=== PATIENT | male | born 1990 | race Hispanic/Latino ===

== ENCOUNTER 2024-07-18 18:52 | Inpatient (IN) | payer SELFPAY ==
[~2024-07-18] VITALS: Ht 175.3 cm; Wt 84.8 kg
--- NOTE | 2024-07-18 18:59 | ERN ---
ED Note History of Present Illness Stated Complaint: ELEVATED BG Chief Complaint: Blood Sugar Problem Time Seen by MD: 18:59 Dictation: 34-year-old male who comes to the ED. Because he said he had elevated sugar. Some generalized weakness. No falls or traumas does report that he has has been getting over a mild cold here recently no abdominal pain no chest pain no shortness of breath anything of that nature no fevers no chills no dysuria hematuria discharge Allergies: Coded Allergies: bee venom (honey bee) (Unverified Allergy, Intermediate, SWELLING, 03/13/14) hE ALSO GETS HIVES No Known Drug Allergies (Verified Allergy, Unknown, 03/13/14) Home Meds Reported Medications [none] No Conflict Check 03/13/14 Review of System Dictation Constitutional: Negative for fever,chills, and weight loss Eyes: Negative for injury, pain,redness, and discharge ENT: Negative for injury,pain or swelling Cardiovascular: Negative for chest pain, palpitations, and edema Respiratory: Negative for shortness of breath, cough, and wheezing, Abdomen/GI: Negative for abdominal pain, nausea, vomiting, diarrhea, and constipation Back: Negative for injury and pain : Negative for injury, bleeding and discharge MS/Extremity: Negative for injury and deformity Skin: Negative for rash, and discoloration Neuro: Negative for headache, weakness, numbness, tingling, and seizure Psych: Negative for suicide ideation, homicidal ideation, and hallucinations Initial Vital Sign VS Vital Signs Date Time Temp Pulse Resp B/P (MAP) Pulse Ox O2 Delivery O2 Flow Rate FiO2 07/18/24 18:56 98.6 118 18 139/88 98 Physical Exam Dictation General: awake, alert, NAD Head/Face: Normocephalic, atraumatic Eyes: PERRL, EOMI, vision at baseline ENT: oral cavity clear, TMs clear, no signs of infection Neck: Trachea midline, supple, no nuchal rigidity Cardiovascular: RRR, normal S1/S2, No MRGs, no JVD Respiratory: CTAB, no respiratory distress, No rales or wheezes Abdomen: Soft, non-tender, non-distended, normal bowel sounds, no guarding or rebound. Skin: Warm, dry, normal turgor, no rash MS/Extremity: Pulses equal, no cyanosis, neurovascular intact, FROM Neuro: COAx4, GCS 15, strength 5/5, CN 2-12 intact, normal cerebellar exam, normal gait, Psych: Normal behavior, mood, and affect normal Results (Laboratory/Radiology) Laboratory/Radiology Laboratory Tests Test 07/18/24 19:38 07/18/24 19:42 07/18/24 21:58 Whole Blood Glucose 365 MG/DL (70-110) H Bedside Glucose Comment Protocol Initiated Bedside Glucose #2 Comment Stat Lab Glu Request Bedside Glucose #3 Comment Notified Nurse Urine Color COLORLESS (YELLOW) Urine Appearance CLEAR (CLEAR) Urine pH 5.5 (5.0-8.0) Urine Specific [place] 1.033 (1.001-1.031) Urine Protein 20 mg/dL (NEGATIVE) H Urine Glucose (UA) >=1000 mg/dL (NEGATIVE) H Urine Ketones 150 mg/dL (NEGATIVE) H Urine Occult Blood NEGATIVE (NEGATIVE) Urine Nitrate NEGATIVE (NEGATIVE) Urine Bilirubin NEGATIVE mg/dL (NEGATIVE) Urine Urobilinogen 0.2 mg/dL (0.2-1.0) Urine Leukocyte Esterase NEGATIVE Wanda/uL Urine RBC 0-1 /HPF (0-1) Urine WBC 0-1 /HPF (0-1) Urine Squamous Epithelial Cells RARE /HPF (0-2) Urine Bacteria None /HPF (None Seen) Urine Other Casts 1 /LPF (None Seen) White Blood Count 11.8 K/uL (4.8-10.8) H Red Blood Count 5.93 MIL/uL (4.50-6.20) Hemoglobin 17.6 g/dL (14.0-18.0) Hematocrit 49.9 % (42-54) Mean Corpuscular Volume 84.1 fL (79-99) Mean Corpuscular Hemoglobin 29.7 pg (27.0-33.0) Mean Corpuscular Hemoglobin Concent 35.3 g/dL (32.0-36.0) Red Cell Distribution Width 13.5 % (11.0-15.5) Platelet Count 381 K/uL (130-400) Mean Platelet Volume 10.8 fL (7.5-10.5) H Immature Granulocyte % (Auto) 0.5 % (0-1) Neutrophils (%) (Auto) 69.2 % (40.0-77.0) Lymphocytes (%) (Auto) 23.7 % (21.0-51.0) Monocytes (%) (Auto) 5.6 % (3.0-13.0) Eosinophils (%) (Auto) 0.5 % (0.0-8.0) Basophils (%) (Auto) 0.5 % (0.0-5.0) Neutrophils # (Auto) 8.2 K/uL (1.8-7.7) H Lymphocytes # (Auto) 2.8 K/uL (1.0-4.8) Monocytes # (Auto) 0.7 K/uL (0.1-1.0) Eosinophils # (Auto) 0.06 K/uL (0.00-0.70) Basophils # (Auto) 0.06 K/uL (0.00-0.20) Absolute Immature Granulocyte (auto 0.06 K/uL (0-1) Nucleated Red Blood Cells 0.0 % (0.0-0.19) Sodium Level 136 mmol/L (136-145) Potassium Level 3.4 mmol/L (3.5-5.1) L Chloride Level 101 mmol/L (101-111) Carbon Dioxide Level 14 mmol/L (21-32) L Blood Urea Nitrogen 8 mg/dL (7-18) Creatinine 1.2 mg/dL (0.5-1.3) Glomerular Filtration Rate Calc 82 mL/min (>90) Random Glucose 315 mg/dL (70-105) H Total Calcium 9.0 mg/dL (8.5-10.1) Total Bilirubin 0.6 mg/dL (0.2-1.0) Aspartate Amino Transf (AST/SGOT) 23 U/L (10-37) Alanine Aminotransferase (ALT/SGPT) 61 U/L (12-78) Alkaline Phosphatase 132 U/L (50-136) Total Protein 8.3 g/dL (6.0-8.3) Albumin 4.1 g/dL (3.5-5.0) ED Course ED Course Orders Procedure Category Date Status Time Random Accucheck At CPOE 07/18/24 Transmitted Bedside 19:35 Comprehensive LAB 07/18/24 Complete Metabolic Panel 19:43 Urinalysis Profile LAB 07/18/24 Complete 19:46 0.9%Nacl 1000ml (Ns PHA 07/18/24 In Process 1000ml) 20:00 Cbc With Differential LAB 07/18/24 Complete 19:43 Insulin Regular, PHA 07/18/24 Complete Human 3ml (Humulin R 22:30 Chest 1vw RAD 07/18/24 Logged 22:39 Dka Prtcl:Restrict To CPOE 07/18/24 Transmitted Icu/Ccu 22:39 Dka Protcl:Dc All CPOE 07/18/24 Transmitted Meds/Feeding 22:39 Dka Protocol: Bmp Q4h CPOE 07/18/24 Transmitted Until 22:39 Basic Metabolic Panel LAB 07/18/24 Logged 22:39 Basic Metabolic Panel LAB 07/19/24 Verified 02:39 Basic Metabolic Panel LAB 07/19/24 Verified 06:39 Basic Metabolic Panel LAB 07/19/24 Verified 10:39 Basic Metabolic Panel LAB 07/19/24 Verified 14:39 Basic Metabolic Panel LAB 07/19/24 Verified 18:39 Basic Metabolic Panel LAB 07/19/24 Verified 22:39 Basic Metabolic Panel LAB 07/20/24 Verified 02:39 Basic Metabolic Panel LAB 07/20/24 Verified 06:39 Basic Metabolic Panel LAB 07/20/24 Verified 10:39 Basic Metabolic Panel LAB 07/20/24 Verified 14:39 Basic Metabolic Panel LAB 07/20/24 Verified 18:39 Basic Metabolic Panel LAB 07/20/24 Verified 22:39 Magnesium LAB 07/18/24 Logged 22:39 Phosphorus LAB 07/18/24 Logged 22:39 Ketone Blood LAB 07/18/24 Logged Quantitative 22:39 Arterial Blood Gas RT 07/18/24 Transmitted 22:39 D5w-1/2 Ns/20meq Kcl PHA 07/18/24 In Process (D5w-1/2 Ns/20meq K 23:00 Potassium Chloride PHA 07/18/24 Logged 20meq/10ml (Kcl 20meq 23:00 Potassium Chloride PHA 07/18/24 In Process 10meq/100ml ([place] 23:00 Magnesium 2gm Premix PHA 07/18/24 In Process 50ml (Magnesium 2gm 23:00 Insulin Regular, PHA 07/18/24 Logged Human 3ml (Humulin R 23:00 Dka Protocol: Bs, Vs, CPOE 07/18/24 Transmitted Neuro 22:39 Dextrose 5 %-0.45 % PHA 07/18/24 In Process Nacl (D5 1/2ns) 23:00 Current Medications Medications (Trade) Dose Ordered Sig/Mitchell Route PRN Reason Start Time Stop Time Status Last Admin Dose Admin Dextrose/Sodium Chloride 1,000 ml @ 0 mls/hr AD IV 07/18/24 23:00 08/17/24 22:59 Insulin Human Regular (humuLIN R 100 UNIT/ML 3ML) 10 unit ONCE ONCE SQ 07/18/24 22:30 07/18/24 22:31 DC Insulin Human Regular 100 unit/ Sodium Chloride 101 ml @ 0 mls/hr PROTOCOL IV 07/18/24 23:00 08/17/24 22:59 UNV Magnesium Sulfate 50 ml @ 0 mls/hr PROTOCOL IV 07/18/24 23:00 08/17/24 22:59 Potassium Chloride 20 meq/ Sodium Chloride 1,010 ml @ 0 mls/hr PROTOCOL IV 07/18/24 23:00 08/17/24 22:59 UNV Potassium Chloride/Dextrose/ Sod Cl 1,000 ml @ 0 mls/hr AD IV 07/18/24 23:00 08/17/24 22:59 Potassium Chloride 100 ml @ 0 mls/hr PROTOCOL PRN IV DKA POTASSIUM REPLACEMENT 07/18/24 23:00 08/17/24 22:59 Sodium Chloride 1,000 ml @ 0 mls/hr Q0M IV 07/18/24 20:00 08/17/24 19:59 07/18/24 22:00 Vital Signs Date Time Temp Pulse Resp B/P (MAP) Pulse Ox O2 Delivery O2 Flow Rate FiO2 07/18/24 18:56 98.6 118 18 139/88 98 Medical Decision Making MDM Likely just hyperglycemia and viral syndrome. So we do some fluids. And do some basic labs make sure not do care. I do anticipate discharge Spoke to patient. I a low bicarb of 14. I put in DKA protocol. I will admit patient after chest x-ray DX & DISP Disposition: Inpatient Departure Impression: Primary Impression: DKA (diabetic ketoacidosis) Condition: Stable Referrals: SELF,REFERRAL (PCP) SUZAN GOODWIN MD Jul 18, 2024 18:59
[2024-07-18 19:45] LABS: GLUCOSE POC COMMENT Notified Nurse
--- NOTE | 2024-07-18 19:45 | NUR ---
BLOOD SUGAR 365
[2024-07-18 20:16] LABS: APPEARANCE,URINE CLEAR (CLEAR); BILIRUBIN,URINE NEGATIVE (NEGATIVE); COLOR,URINE COLORLESS (YELLOW); GLUCOSE, URINE (UA) >=1000 mg/dL (NEGATIVE); KETONES,URINE 150 mg/dL (NEGATIVE); LEUKOCYTE ESTERASE ,URINE NEGATIVE Leu/uL (NEGATIVE); NITRATE,URINE NEGATIVE (NEGATIVE); OCCULT BLOOD,URINE NEGATIVE (NEGATIVE); PH,URINE 5.5 (5.0-8.0); PROTEIN,URINE 20 mg/dL (NEGATIVE); UROBILINOGEN,URINE 0.2 mg/dL (0.2-1.0)
[2024-07-18 20:17] LABS: ADD UA MICROSCOPIC YES
[2024-07-18 20:23] LABS: MUCUS,URINE RARE LPF (None Seen); OTHER CASTS, URINE 1 /LPF (None Seen); RBC,URINE 0-1 /HPF (0-1); SQUAMOUS EPITHELIAL CELL,UR RARE /HPF (0-2); WBC,URINE 0-1 /HPF (0-1)
[2024-07-18] MEDS: 0.9%NACL 1000ML 1,000 ML IV SCH (22:00)
[2024-07-18 22:09] LABS: BASOPHILS # (AUTO) 0.06 K/uL (0.00-0.20); BASOPHILS % (AUTO) 0.5 % (0.0-5.0); EOSINOPHILS # (AUTO) 0.06 K/uL (0.00-0.70); EOSINOPHILS % (AUTO) 0.5 % (0.0-8.0); HEMATOCRIT 49.9 % (42-54); IMMATURE GRANULOCYTE ABSOLUTE 0.06 K/uL (0-1); LYMPHOCYTES # (AUTO) 2.8 K/uL (1.0-4.8); LYMPHOCYTES % (AUTO) 23.7 % (21.0-51.0); MEAN CORPUSCULAR HEMOGLOBIN 29.7 pg (27.0-33.0); MEAN CORPUSCULAR HGB CONC 35.3 g/dL (32.0-36.0); MEAN CORPUSCULAR VOLUME 84.1 fL (79-99); MONOCYTES # (AUTO) 0.7 K/uL (0.1-1.0); MONOCYTES % (AUTO) 5.6 % (3.0-13.0); NEUTROPHILS # (AUTO) 8.2 K/uL (1.8-7.7); NEUTROPHILS % (AUTO) 69.2 % (40.0-77.0); PLATELET COUNT (AUTO) 381 K/uL (130-400); RED BLOOD CELL COUNT(AUTO) 5.93 MIL/uL (4.50-6.20); RED CELL DISTRIBUTION WIDTH 13.5 % (11.0-15.5); WHITE BLOOD COUNT (AUTO) 11.8 K/uL (4.8-10.8)
[2024-07-18 22:21] LABS: CREATININE 1.2 mg/dL (0.5-1.3); POTASSIUM 3.4 mmol/L (3.5-5.1)
[2024-07-18 22:26] LABS: ALBUMIN 4.1 g/dL (3.5-5.0); BILIRUBIN,TOTAL 0.6 mg/dL (0.2-1.0); TOTAL PROTEIN, SERUM 8.3 g/dL (6.0-8.3)
[2024-07-18] MEDS ORDERED: INSULIN REGULAR, HUMAN 3ML 100 UNIT in 0.9%NACL 100ML 100 ML IV SCH (23:00)
[2024-07-18] MEDS ORDERED: MAGNESIUM 2GM PREMIX 50ML 50 ML IV SCH (23:00)
[2024-07-18] MEDS ORDERED: D5W-1/2 NS/20MEQ KCL 1,000 ML IV SCH (23:00)
[2024-07-18] MEDS ORDERED: DEXTROSE 5 %-0.45 % NACL 1,000 ML IV SCH (23:00)
[2024-07-18] MEDS ORDERED: PoTASSium chloRIDE 20MEQ/10ML 20 MEQ in 0.9%NACL 1000ML 1,000 ML IV SCH (23:00)
[2024-07-18 23:14] LABS: ABG BASE EXCESS -16.6 mmol/L (-2.0-3.0); ABG HCO3 8.5 mmol/L (21.0-28.0); ABG OXYGEN SATURATION 97.4 % (94.0-98.0); ABG PCO2 20 mmHg (35-48); ABG PH 7.237 (7.350-7.450); PO2, ARTERIAL BG 110.7 mmHg (83.0-108.0); VENT MODE, BG RA,21 (ROOM AIR)
[2024-07-19] VITALS (24 sets, daily range): BP systolic 97–144; BP diastolic 43–72; PULSE 77–97; RESP 11–27; TEMP 97.9–98.6; O2SAT 99
--- NOTE | 2024-07-19 00:08 | HP ---
[facility] HISTORY [facility] PHYSICAL Date of Service: Jul 18, 2024 Time of Service: 23:58 PCP: Self Referral HISTORY OF PRESENT ILLNESS: This is a 34 year old male with no pertinent medical history who presents to the ED for complaints of generalized weakness .Patient states he had dry cough 2 days ago.Patient reports he has lost 15 lbs in a month and started feeling weak with blurry vision for the past 2 weeks and his vision has been normal now but he is feeling more weaker.Patient denies history of diabetes. Patient seen and examined in the ED ,awake,alert and coherent,ambulatory .Patient denies fever,chills,nausea,vomiting ,abdominal pain,chest pain,palpitation and shortness of breath. Latest vital signs temperature 98.6, heart rate 118, blood pressure 139/88 saturation 98% on room air. Labs: WBC 11.8, hemoglobin 17.6, hematocrit 49.9 platelet count 381. PH 7.23, CO2 20, PO2 110 bicarb 8.5 O2 saturation 97% base excess -16. Sodium 136, potassium 3.4, CO2 40 glucose 365 the rest of the chemistries unremarkable. Urinalysis remarkable for proteinuria ,glucosuria and ketonuria. Chest x-ray result is still pending at this time. While in the ER patient received 10 units insulin IV fluids 1 L NS and started on insulin drip we will admit patient in ICU for insulin drip. REVIEW OF SYSTEMS CONSTITUTIONAL: Complained of weight loss 15 lb Denies fevers, chills, or night sweats. NEUROLOGICAL: Complain of generalized body weakness Denies headache, amaurosis fugax, sensory deficit, vertigo/spinning sensation, gait abnormalities, or tremors. ENT: Complained of blurry vision No hearing loss, otalgia, otorrhea, rhinitis, rhinorrhea, hoarseness, or sore throat. CARDIOVASCULAR: Denies any exertional angina, dyspnea on exertion, orthopnea, paroxysmal nocturnal dyspnea, palpitations, life-threatening arrhythmias, claudication. PULMONARY: Denies any shortness of breath, cough, phlegm/sputum, hemoptysis, pleuritic chest pain. SLEEP: Denies morning headaches, daytime somnolence or napping. Denies difficulty falling asleep, staying asleep, waking from sleep. Denies knowledge of snoring. GASTROINTESTINAL: Complain of constipation Denies any type of dysphagia to either liquids or solids. Denies nausea, vomiting, pyrosis, early satiety, abdominal pain, diarrhea, changes in stool consistency or caliber. Denies coffee-ground emesis, hematemesis, hematochezia, or melanotic stools. GENITOURINARY: Denies frequency, urgency, nocturia, hematuria or incontinence (Storage/Irritative symptoms.) Low urinary stream, straining to void, urinary intermittency or hesitancy, splitting of the voiding stream, terminal dribbling. ENDOCRINOLOGIC: Denies polyuria, polydipsia, polyphagia or heat/cold intolerances. HEMATOLOGIC: Denies thrombophilia/previous clots, or coagulopathy/bleeding disorders. ONCOLOGIC: Denies personal history of malignancy. DERMATOLOGIC: Denies rashes or pruritus. PSYCHIATRIC: Denies any suicidal or homicidal ideation. Denies hallucinations. PAST MEDICAL HISTORY: [ No pertinent medical history ] PAST SURGICAL HISTORY: [ Cholecystectomy ] PAST SOCIAL HISTORY: [ Patient lives alone. Patient denies alcohol tobacco recreational drug use ] FAMILY HISTORY: [Noncontributory ] Coded Allergies: bee venom (honey bee) (Unverified Allergy, Intermediate, SWELLING, 03/13/14) hE ALSO GETS HIVES No Known Drug Allergies (Verified Allergy, Unknown, 03/13/14) PHYSICAL EXAM GENERAL APPEARANCE: The patient is awake, alert, and oriented, in no acute cardiopulmonary distress. NEUROLOGICAL: Cranial nerves II-XII grossly intact. Motor is 5/5 in bilateral upper and lower extremities proximal to distal. No sensory deficits. HEENT: Face is symmetric. Pupils are equal and reactive. Extraocular movements are intact. NECK: Supple. No JVD. No thyromegaly. No submental, submandibular, pre- /postauricular, occipital or supraclavicular lymphadenopathy. CHEST: Normal chest expansion. No Telemetry. LUNGS: Absence of any rales, rhonchi or any wheezing. CARDIOVASCULAR: Regular. S1 and S2 normal. No appreciable rubs, murmurs or gallops. ABDOMEN: Soft, nontender, and nondistended. There is no rebound, voluntary guarding, or rigidity. : Deferred. No [place]. EXTREMITIES: Non-edematous and not cyanotic. No clubbing. Good capillary refill. SKIN: No skin breakdown. Vital Sign (Last 24 Hours) 07/18/24 18:56 Temp 98.6 Pulse 118 Resp 18 B/P (MAP) 139/88 Pulse Ox 98 LABS: Laboratory: Test 07/18/24 23:13 07/18/24 21:58 07/18/24 19:42 07/18/24 19:38 Range/Units Blood Gas Specimen Type Arterial Arterial Blood pH 7.237 *L 7.350-7.450 Arterial Blood Partial Pressure CO2 20 *L 35-48 mmHg Arterial Blood Partial Pressure O2 110.7 H 83.0-108.0 mmHg Arterial Blood HCO3 8.5 L 21.0-28.0 mmol/L Arterial Blood Oxygen Saturation 97.4 94.0-98.0 % Arterial Blood Base Excess -16.6 L -2.0-3.0 mmol/L Blood Gas Temperature 37.0 35.5-37.0 CELSIUS Blood Gas Vent Mode RA,21 ROOM AIR FiO2 21.0 % Blood Gas Specimen Comment LB,ER DOCTOR White Blood Count 11.8 H 4.8-10.8 K/uL Red Blood Count 5.93 4.50-6.20 MIL/uL Hemoglobin 17.6 14.0-18.0 g/dL Hematocrit 49.9 42-54 % Mean Corpuscular Volume 84.1 79-99 fL Mean Corpuscular Hemoglobin 29.7 27.0-33.0 pg Mean Corpuscular Hemoglobin Concent 35.3 32.0-36.0 g/dL Red Cell Distribution Width 13.5 11.0-15.5 % Platelet Count 381 130-400 K/uL Mean Platelet Volume 10.8 H 7.5-10.5 fL Immature Granulocyte % (Auto) 0.5 0-1 % Neutrophils (%) (Auto) 69.2 40.0-77.0 % Lymphocytes (%) (Auto) 23.7 21.0-51.0 % Monocytes (%) (Auto) 5.6 3.0-13.0 % Eosinophils (%) (Auto) 0.5 0.0-8.0 % Basophils (%) (Auto) 0.5 0.0-5.0 % Neutrophils # (Auto) 8.2 H 1.8-7.7 K/uL Lymphocytes # (Auto) 2.8 1.0-4.8 K/uL Monocytes # (Auto) 0.7 0.1-1.0 K/uL Eosinophils # (Auto) 0.06 0.00-0.70 K/uL Basophils # (Auto) 0.06 0.00-0.20 K/uL Absolute Immature Granulocyte (auto 0.06 0-1 K/uL Nucleated Red Blood Cells 0.0 0.0-0.19 % Sodium Level 136 136-145 mmol/L Potassium Level 3.4 L 3.5-5.1 mmol/L Chloride Level 101 101-111 mmol/L Carbon Dioxide Level 14 L 21-32 mmol/L Blood Urea Nitrogen 8 7-18 mg/dL Creatinine 1.2 0.5-1.3 mg/dL Glomerular Filtration Rate Calc 82 >90 mL/min Random Glucose 315 H 70-105 mg/dL Total Calcium 9.0 8.5-10.1 mg/dL Total Bilirubin 0.6 0.2-1.0 mg/dL Aspartate Amino Transf (AST/SGOT) 23 10-37 U/L Alanine Aminotransferase (ALT/SGPT) 61 12-78 U/L Alkaline Phosphatase 132 50-136 U/L Total Protein 8.3 6.0-8.3 g/dL Albumin 4.1 3.5-5.0 g/dL Urine Color COLORLESS YELLOW Urine Appearance CLEAR CLEAR Urine pH 5.5 5.0-8.0 Urine Specific [place] 1.033 H 1.001-1.031 Urine Protein 20 H NEGATIVE mg/dL Urine Glucose (UA) >=1000 H NEGATIVE mg/dL Urine Ketones 150 H NEGATIVE mg/dL Urine Occult Blood NEGATIVE NEGATIVE Urine Nitrate NEGATIVE NEGATIVE Urine Bilirubin NEGATIVE NEGATIVE mg/dL Urine Urobilinogen 0.2 0.2-1.0 mg/dL Urine Leukocyte Esterase NEGATIVE NEGATIVE Wanda/uL Urine RBC 0-1 0-1 /HPF Urine WBC 0-1 0-1 /HPF Urine Squamous Epithelial Cells RARE 0-2 /HPF Urine Bacteria None None Seen /HPF Urine Other Casts 1 None Seen /LPF Whole Blood Glucose 365 H 70-110 MG/DL Bedside Glucose Comment Protocol Initiated Bedside Glucose #2 Comment Stat Lab Glu Request Bedside Glucose #3 Comment Notified Nurse Current Medications Medications (Trade) Dose Ordered Sig/Mitchell Route PRN Reason Start Time Stop Time Status Last Admin Dose Admin Dextrose/Sodium Chloride 1,000 ml @ 0 mls/hr AD IV 07/18/24 23:00 08/17/24 22:59 Insulin Human Regular 100 unit/ Sodium Chloride 101 ml @ 0 mls/hr PROTOCOL IV 07/18/24 23:00 08/17/24 22:59 Magnesium Sulfate 50 ml @ 0 mls/hr PROTOCOL IV 07/18/24 23:00 08/17/24 22:59 Potassium Chloride 20 meq/ Sodium Chloride 1,010 ml @ 0 mls/hr PROTOCOL IV 07/18/24 23:00 08/17/24 22:59 Potassium Chloride/Dextrose/ Sod Cl 1,000 ml @ 0 mls/hr AD IV 07/18/24 23:00 08/17/24 22:59 Potassium Chloride 100 ml @ 0 mls/hr PROTOCOL PRN IV DKA POTASSIUM REPLACEMENT 07/18/24 23:00 08/17/24 22:59 Sodium Chloride 1,000 ml @ 0 mls/hr Q0M IV 07/18/24 20:00 08/17/24 19:59 07/18/24 22:00 999 MLS/HR DIAGNOSTICS / RADIOLOGY: [ ] ASSESSMENT: DKA with wide anion gap metabolic acidosis POA New onset diabetes POA PLAN: We will admit patient in ICU We will keep patient nothing by mouth We will start patient on insulin drip,Hourly glucometer ,maintenance IV Fluids and lectrolyte replacement per DKA protocol We will start on Famotidine 20 mg IV bid for GI prophylaxis We will add prn medication for fever,pain,cough and nausea We will seek critical care consultation We will seek endocrinology consultation We will request labs in am Further orders to follow depending on above results Case discussed with attending physician and came up with above treatment and plan of care ADVANCED CARE PLANNING 1. Which of the following were discussed? Hospice Care - No Therapeutic options - Yes Advance Directives - No Other discussions - 2. Discussed with who? Patient 3. Voluntary nature of this service was explained to the patient? Yes 4. Amount of time spent -20 5. Reviewed by Physician? (if this service was performed by NPP) Yes ADDENDUM: ATTENDING PHYSICIAN ATTESTATION: I have seen and discussed this patient with the midlevel and I agree with their plan. See my addendum for updates to the medical plan MD JACKIE Bradley [facility] Jul 19, 2024 00:08 SAV CAMEJO MD Jul 20, 2024 15:28
[2024-07-19] MEDS: INSULIN humuLIN R 100 UNIT/ML 3ML SQ ONE (00:10)
[2024-07-19] MEDS ORDERED: PoTASSium chloRIDE 20MEQ/10ML 20 MEQ in 0.9%NACL 1000ML 1,000 ML IV SCH (00:30)
[2024-07-19] MEDS ORDERED: acetaMINOPHEN 325 MG TAB PO PRN ×2 (00:30)
[2024-07-19] MEDS ORDERED: MAGNESIUM 2GM PREMIX 50ML 50 ML IV SCH (00:30)
[2024-07-19] MEDS ORDERED: ondanSETRON 4MG INJ IV PRN (00:30)
[2024-07-19] MEDS ORDERED: DEXTROSE 5 %-0.45 % NACL 1,000 ML IV SCH (00:30)
[2024-07-19] MEDS ORDERED: INSULIN REGULAR, HUMAN 3ML 100 UNIT in 0.9%NACL 100ML 100 ML IV SCH (00:30)
[2024-07-19 00:37] LABS: CREATININE 1.1 mg/dL (0.5-1.3); POTASSIUM 3.4 mmol/L (3.5-5.1)
[2024-07-19 00:41] LABS: MAGNESIUM 1.8 mg/dL (1.80-2.40); PHOSPHORUS 2.2 mg/dL (2.5-4.9)
--- NOTE | 2024-07-19 01:45 | HMCIMG ---
CHEST 1VW HISTORY: Chest pain COMPARISON: None FINDINGS: A frontal projection of the chest was obtained. No acute pulmonary infiltrates is seen. The heart is normal in size. Prominent interstitial markings are seen. Degenerative changes are seen. No evidence of aortic calcification is seen. IMPRESSION: 1. No acute pulmonary infiltrate is seen.
[2024-07-19] MEDS: 0.9%NACL 1000ML 1,000 ML IV SCH (01:54)
[2024-07-19] MEDS: NS-20 MEQ KCL 1000ML 1,000 ML IV SCH (02:10)
--- NOTE | 2024-07-19 02:18 | NUR ---
NURSE BUSY FOR REPORT AT THIS TIME.
[2024-07-19] MEDS: D5W-1/2 NS/20MEQ KCL 1,000 ML IV SCH (03:46)
[2024-07-19 05:36] LABS: BASOPHILS # (AUTO) 0.06 K/uL (0.00-0.20); BASOPHILS % (AUTO) 0.5 % (0.0-5.0); EOSINOPHILS # (AUTO) 0.16 K/uL (0.00-0.70); EOSINOPHILS % (AUTO) 1.4 % (0.0-8.0); HEMATOCRIT 40.7 % (42-54); IMMATURE GRANULOCYTE ABSOLUTE 0.06 K/uL (0-1); LYMPHOCYTES # (AUTO) 3.2 K/uL (1.0-4.8); MEAN CORPUSCULAR HEMOGLOBIN 29.3 pg (27.0-33.0); MEAN CORPUSCULAR HGB CONC 34.6 g/dL (32.0-36.0); MEAN CORPUSCULAR VOLUME 84.6 fL (79-99); MONOCYTES # (AUTO) 0.7 K/uL (0.1-1.0); MONOCYTES % (AUTO) 6.7 % (3.0-13.0); NEUTROPHILS # (AUTO) 6.8 K/uL (1.8-7.7); NEUTROPHILS % (AUTO) 61.9 % (40.0-77.0); PLATELET COUNT (AUTO) 277 K/uL (130-400); RED BLOOD CELL COUNT(AUTO) 4.81 MIL/uL (4.50-6.20); RED CELL DISTRIBUTION WIDTH 13.5 % (11.0-15.5); WHITE BLOOD COUNT (AUTO) 11.1 K/uL (4.8-10.8)
[2024-07-19 06:02] LABS: HEMOGLOBIN A1C 12.6 % (4.0-6.0)
[2024-07-19 06:04] LABS: CREATININE 0.9 mg/dL (0.5-1.3); MAGNESIUM 1.6 mg/dL (1.80-2.40); THYROID STIMULATING HORMONE 3.04 uIU/mL (0.36-3.74)
[2024-07-19 06:11] LABS: POTASSIUM 2.6 mmol/L (3.5-5.1)
[2024-07-19] MEDS: PoTASSium chloRIDE 10MEQ/100ML 100 ML IV PRN (07:43)
[2024-07-19] MEDS: PoTASSium chloRIDE 20MEQ ER 20 MEQ ERTAB PO ONE (08:07)
[2024-07-19] MEDS: FAMOTIDINE 20MG VIAL IV SCH (08:07)
[2024-07-19] MEDS ORDERED: PoTASSium chl 10% ELIXIR 20MEQ 20 MEQ/15 ML UDCUP PO PRN (08:30)
--- NOTE | 2024-07-19 09:22 | NUR ---
DCP: HOME Sw met with pt who states he lives with his parents (mother) Mother Charles [phone]. Pt works at [employer], he is active and drives. Able to complete ADLs and IADLS. No DMe or in home care services. Pt has first appt 08/12/24 at [facility] to establish self. Uses [facility] for rx. Pt denies dc needs and will return home with family. Addendum: 07/19/24 at 0926 by MORRIS BERKOWITZ Amended: Links added.
[2024-07-19 09:42] LABS: CREATININE 0.9 mg/dL (0.5-1.3); POTASSIUM 3.4 mmol/L (3.5-5.1)
[2024-07-19] MEDS: MAGNESIUM 2GM PREMIX 50ML 50 ML IV SCH (10:42)
[2024-07-19] MEDS: PoTASSium chloRIDE 20MEQ ER 20 MEQ ERTAB PO PRN (10:43)
--- NOTE | 2024-07-19 12:48 | CONS ---
[facility] CONSULTATION NOTE Date Patient Seen: Jul 19, 2024 Time of Visit: 12:48 Supervising Physician: Chris Ryan Reason for Consultation: CCM DKA Primary Care Physician: Self, Referral Outpatient Specialists: Inpatient Consults: DR Song NEVES PROBLEM LIST: DKA with wide anion gap metabolic acidosis POA Hyperglycemia on New onset diabetes mellitus, POA HGA1C 12.6 Leukocytosis, POA Electrolyte derangement (hyponatremia, hypokalemia, hypophosphatemia) Overweight BMI 28.1 HPI: This is a 34-year-old male with no previous past medical history except cholecystectomy who presented to the emergency department for complaints of GBW. He reports started feeling like there was something wrong with him during dance giving when he was having trouble with his vision. He went and got seen glasses and days later his eyesight corrected on its own. He also noticed he has been losing weight a total of 50 lb in the last month and feeling more weak than usual. On arrival to the emergency department patient was afebrile slightly sinus tachycardic with a heart rate of 118 hemodynamically stable with a blood pressure 139/88 saturating 98% on room air. Initial labs showed WBCs of 11.8 hemoglobin of 17.6 hematocrit of 49.9 platelet count of 499037. On ABG pH of 7.23 pCO2 of 20 PO2 of 110 bicarb of 8.5 and O2 saturation 97% with a base excess of -16. On chemistries sodium was 136 potassium 3.4 CO2 of 40 glucose of 365 mg/dL with urinalysis positive for proteinuria and glucosuria and ketonuria. Patient was admitted to the ICU for DKA by [facility] team and we are consulted for critical care management. On behalf of [facility] thank you for given us the opportunity to participate in the care of this patient. On assessment patient is awake alert and oriented x3 hemodynamically stable not on any pressors continues with insulin per DKA protocol. Anion gap was 15 this morning continues to close. Started Lantus for long-acting coverage. Inform patient that his hemoglobin A1c in the importance to follow up with primary care physician or nuclear reactor technician to control diabetes in order to prevent complications from it like blindness, amputations, kidney failure, or AR. patient verbalized understanding and agreed to follow up with primary care physician and start taking care of his blood sugars and follow an adequate diet. PAST MEDICAL HX: None PAST SURGICAL HX: Cholecystectomy SOCIAL HISTORY: No tobacco, ETOH, or illicit drug use Coded Allergies: bee venom (honey bee) (Unverified Allergy, Intermediate, SWELLING, 03/13/14) hE ALSO GETS HIVES No Known Drug Allergies (Verified Allergy, Unknown, 03/13/14) REVIEW OF SYSTEMS: Const: Yes for 15 lb weight loss, fatigue and no fever Eyes: Yes for reason vision column ENT: [No congestion, ear pain, or sore throat] C/V: [no chest pain, palpitations or edema] Resp: [No cough, congestion, wheezing , or Shortness of breath] GI: [No abdominal pain, nausea, vomiting, constipation, or diarrhea] : [No incontinence of or dyuria] M/S: No joint pain or swelling but does report increased GBW Skin: [No rash] Neuro: [no headache, focal numbness, or weakness, dizziness or seizures] Psych: [no depression or anxiety] Heme: [no abnormal bruising or bleeding] Lymph: [no swollen glands] PHYSICAL EXAM: GENERAL: alert, weak, awake oriented x 3 HEENT: EOMI, Sclera non icteric, moist mucosa NECK: Supple, no JVD, trachea midline LUNGS: Clear breath sounds bilaterally. No wheezes HEART: Regular rate and rhythm. Normal S1 and S2, without murmurs ABD: Abdomen soft, nontender. Bowel sounds present EXT: No clubbing cyanosis or edema NEURO: Alert and oriented to person, follows commands Vital Signs (last 8hr) Date Time Temp Pulse Resp B/P (MAP) Pulse Ox O2 Delivery O2 Flow Rate FiO2 07/19/24 09:00 98.4 77 11 106/61 100 Room Air 07/19/24 08:00 80 16 121/61 99 Room Air 07/19/24 08:00 99 Room Air* 0 21 07/19/24 07:00 81 17 100/48 97 Room Air 07/19/24 06:00 83 14 107/59 98 Room Air 07/19/24 05:00 89 27 129/72 99 Room Air LABS: Hematology Labs: Test 07/19/24 05:24 Range/Units White Blood Count 11.1 H 4.8-10.8 K/uL Red Blood Count 4.81 4.50-6.20 MIL/uL Hemoglobin 14.1 14.0-18.0 g/dL Hematocrit 40.7 L 42-54 % Mean Corpuscular Volume 84.6 79-99 fL Mean Corpuscular Hemoglobin 29.3 27.0-33.0 pg Mean Corpuscular Hemoglobin Concent 34.6 32.0-36.0 g/dL Red Cell Distribution Width 13.5 11.0-15.5 % Platelet Count 277 # 130-400 K/uL Mean Platelet Volume 10.7 H 7.5-10.5 fL Immature Granulocyte % (Auto) 0.5 0-1 % Neutrophils (%) (Auto) 61.9 40.0-77.0 % Lymphocytes (%) (Auto) 29.0 21.0-51.0 % Monocytes (%) (Auto) 6.7 3.0-13.0 % Eosinophils (%) (Auto) 1.4 0.0-8.0 % Basophils (%) (Auto) 0.5 0.0-5.0 % Neutrophils # (Auto) 6.8 1.8-7.7 K/uL Lymphocytes # (Auto) 3.2 1.0-4.8 K/uL Monocytes # (Auto) 0.7 0.1-1.0 K/uL Eosinophils # (Auto) 0.16 0.00-0.70 K/uL Basophils # (Auto) 0.06 0.00-0.20 K/uL Absolute Immature Granulocyte (auto 0.06 0-1 K/uL Nucleated Red Blood Cells 0.0 0.0-0.19 % Chemistry Labs: Test 07/19/24 12:13 07/19/24 09:20 07/19/24 05:24 07/18/24 23:50 Range/Units Whole Blood Glucose 138 H 70-110 MG/DL Sodium Level 133 L 136-145 mmol/L Potassium Level 3.4 L 3.5-5.1 mmol/L Chloride Level 105 101-111 mmol/L Carbon Dioxide Level 13 L 21-32 mmol/L Blood Urea Nitrogen 5 L 7-18 mg/dL Creatinine 0.9 0.5-1.3 mg/dL Glomerular Filtration Rate Calc 116 >90 mL/min Random Glucose 244 H 70-105 mg/dL Total Calcium 7.7 L 8.5-10.1 mg/dL Hemoglobin A1c 12.6 H 4.0-6.0 % Estimated Average Glucose (eAG) 315 H 70-126 mg/dL Magnesium Level 1.60 L 1.80-2.40 mg/dL Thyroid Stimulating Hormone (TSH) 3.04 0.36-3.74 uIU/mL Whole Blood Ketones Quantitative 5.8 H 0.0-0.6 mmol/L Phosphorus Level 2.2 L 2.5-4.9 mg/dL Test 07/18/24 21:58 07/18/24 19:38 Range/Units Total Bilirubin 0.6 0.2-1.0 mg/dL Aspartate Amino Transf (AST/SGOT) 23 10-37 U/L Alanine Aminotransferase (ALT/SGPT) 61 12-78 U/L Alkaline Phosphatase 132 50-136 U/L Total Protein 8.3 6.0-8.3 g/dL Albumin 4.1 3.5-5.0 g/dL Bedside Glucose Comment Protocol Initiated Bedside Glucose #2 Comment Stat Lab Glu Request Bedside Glucose #3 Comment Notified Nurse DIAGNOSTICS / RADIOLOGY RESULTS: [ ] IMAGING REPORT Signed PATIENT: CARLIN LUCAS MR#: [id number] : 1990 SEX: M AGE: 34 LOCATION: 2BH ORDER [id number] STATUS: ADM IN REPORT#: [id number] SERVICE 1239 REASON: constipation ORDERING PHYSICIAN: HEATH GUERRERO PROCEDURE: ABD 1VW - ABD 1VW ABD 1VW REASON: constipation FINDINGS: Single image of the abdomen was obtained. Bowel gas pattern is normal. Bones and soft tissues appear unremarkable. There are no abnormal calcifications. There is no evidence of foreign body. There are right upper quadrant surgical clips from previous cholecystectomy. IMPRESSION: 1. No acute finding. DICTATED BY: GUEVARA PIERSON MD DATE: 07/19/24 1412 ELECTRONICALLY SIGNED BY: GUEVARA PIERSON MD DATE: 07/19/24 1415 IMAGING REPORT Signed PATIENT: CARLIN LUCAS MR#: [id number] : 1990 SEX: M AGE: 34 LOCATION: ED[facility]IP ORDER [id number] STATUS: ADM IN REPORT#: [id number] SERVICE 38 REASON: cp ORDERING PHYSICIAN: SUZAN GOODWIN MD PROCEDURE: CXR1VW - CHEST 1VW CHEST 1VW HISTORY: Chest pain COMPARISON: None FINDINGS: A frontal projection of the chest was obtained. No acute pulmonary infiltrates is seen. The heart is normal in size. Prominent interstitial markings are seen. Degenerative changes are seen. No evidence of aortic calcification is seen. IMPRESSION: 1. No acute pulmonary infiltrate is seen. DICTATED BY: RIGO CAMP MD DATE: 07/19/24140 ELECTRONICALLY SIGNED BY: RIGO CAMP MD DATE: 07/19/24144 PLAN Admitted to ICU per hospitalist DKA protocol BMP q.4 hours per protocol Magnesium, potassium levels covered per protocol Q.1 hour or fingersticks Cardiac telemetry monitoring Venous blood gas in the morning Monitor serum sodium which tend to rise as hypoglycemia is corrected failure to observe may indicate the patient has been over-hydrated with free water Strict I&O Assess mental status Administered subcu basal insulin consider bicarb if patient's pH is less than 6.9 bicarb less than 5., cardiac or respiratory dysfunction, severely hyperkalemia, Rechecked PH Monitor for rebound DKA NEURO: Minimize central acting medications as possible. Fall Precautions. Well lighted room through the day and minimize interruptions through the night to prevent acute delirium. PULMONARY: Supplemental 02 as needed Titrate Fio2 to keep Spo2 > or = 90% DuoNebs and CPT as needed IS hourly while awake for pulmonary hygiene Out of bed to chair as tolerated CARDIOVASCULAR: Follow hemodynamics. Titrate vasopressor to keep MAP >65 or systolic blood pressure >95mmHg Drips: Insulin gtt per protocol LINES: PIV GI & NUTRITION: Continue nutritional support Aspirations precautions Prokinetic agents and laxatives as needed KIDNEYS & ELECTROLYTES: Strict monitoring of intake and output Daily weights Avoid nephrotoxic agents Monitor electrolytes and replace as needed Goal urine output of 30mL/hr or 0.5mL/kg/hr Urine output: [ ] Fluid Balance: [ ] ENDOCRINE: Maintain blood glucose between 100-180 at all times. Insulin sliding scale for blood glucose management INFECTIOUS DISEASE: Trend temperature. Salvador-culture if febrile. Micro: [ ] Antibiotics: [ ] HEMATOLOGY & COAGULATION: Monitor H&H. Keep Hgb > 7 Transfuse 1 unit of PRBC for Hgb < 7 Transfuse 1 pack of platelets of platelets < 20, 000 Watch for any signs and symptoms of bleeding SKIN: Pressure ulcer prevention per facility protocol Rehab: PT/OT Prophylaxis: GI: Protonix DVT: Lovenox Code Status: Full Resuscitation Disposition: ICU Other: Total patient care time exceeds 45 minutes excluding all procedures. Case was discussed and seen with my supervising physician. The above plan was formulated and agreed upon. HEATH GUERRERO [facility] Jul 19, 2024 12:48
[2024-07-19 13:19] LABS: CREATININE 0.9 mg/dL (0.5-1.3); MAGNESIUM 2.1 mg/dL (1.80-2.40); POTASSIUM 3.1 mmol/L (3.5-5.1)
--- NOTE | 2024-07-19 13:30 | NUR ---
ENDO CONSULT AWARE
[2024-07-19] MEDS: polyETHYLene GLYCol 3350 17 GM POWD.PACK ONE (13:31)
[2024-07-19] MEDS: INSULIN GLARgine 100 UNITS/ML 10 ML VIAL SQ SCH (13:35)
[2024-07-19] MEDS: polyETHYLene GLYCol 3350 17 GM POWD.PACK PO ONE (13:36)
[2024-07-19] MEDS: BisaCODYL 10 MG SUPP.RECT RC ONE (14:02)
--- NOTE | 2024-07-19 14:15 | HMCIMG ---
ABD 1VW REASON: constipation FINDINGS: Single image of the abdomen was obtained. Bowel gas pattern is normal. Bones and soft tissues appear unremarkable. There are no abnormal calcifications. There is no evidence of foreign body. There are right upper quadrant surgical clips from previous cholecystectomy. IMPRESSION: 1. No acute finding.
[2024-07-19 17:49] LABS: CREATININE 0.9 mg/dL (0.5-1.3); POTASSIUM 3.2 mmol/L (3.5-5.1)
[2024-07-19 21:58] LABS: CREATININE 0.8 mg/dL (0.5-1.3); MAGNESIUM 1.7 mg/dL (1.80-2.40); POTASSIUM 3.4 mmol/L (3.5-5.1)
[2024-07-20] VITALS (18 sets, daily range): BP systolic 102–136; BP diastolic 50–93; PULSE 76–99; RESP 17–32; TEMP 98.1–98.9; O2SAT 97–99
[2024-07-20 04:06] LABS: ABG OXYGEN SATURATION 60.5 % (94.0-98.0); BASE EXCESS,VENOUS BLOOD GAS -9.6 (-2.0-3.0); HCO3,VENOUS BLOOD GAS 15.8 (22.0-29.0); PCO2,VENOUS BLOOD GAS 33 (38-54); PH,VENOUS BLOOD GAS 7.293 (7.320-7.430); PO2,VENOUS BLOOD GAS 34.5 mmHg (23.0-48.0); VENT MODE, BG RA,21 (ROOM AIR)
[2024-07-20] MEDS ORDERED: LACTATED RINGERS 1000ML 1,000 ML IV PRN (04:30)
[2024-07-20 04:43] LABS: MEAN CORPUSCULAR HEMOGLOBIN 29.8 pg (27.0-33.0); MEAN CORPUSCULAR HGB CONC 35.9 g/dL (32.0-36.0); RED BLOOD CELL COUNT(AUTO) 4.46 MIL/uL (4.50-6.20); RED CELL DISTRIBUTION WIDTH 13.6 % (11.0-15.5); WHITE BLOOD COUNT (AUTO) 9.2 K/uL (4.8-10.8)
[2024-07-20 05:03] LABS: ALBUMIN 2.7 g/dL (3.5-5.0); BILIRUBIN,TOTAL 0.6 mg/dL (0.2-1.0); CREATININE 0.8 mg/dL (0.5-1.3); MAGNESIUM 1.7 mg/dL (1.80-2.40); POTASSIUM 3.7 mmol/L (3.5-5.1); TOTAL PROTEIN, SERUM 5.7 g/dL (6.0-8.3)
--- NOTE | 2024-07-20 06:11 | NUR ---
Spoke to jocelyn evaluation advisor regarding patients gap being 13 after previous gaps were 11 and 9. An abg+ was ordered for 0800.
[2024-07-20] MEDS: HEParin 5,000 UNIT VIAL IV ONE (06:34)
[2024-07-20] MEDS: INSULIN humuLIN R 100 UNIT/ML 3ML SQ SCH (07:30)
[2024-07-20] MEDS: polyETHYLene GLYCol 3350 17 GM POWD.PACK PO SCH (08:10)
[2024-07-20 11:17] LABS: CREATININE 0.7 mg/dL (0.5-1.3); POTASSIUM 3.4 mmol/L (3.5-5.1)
--- NOTE | 2024-07-20 11:46 | PN ---
[facility] PROGRESS NOTE Date Patient Seen: Jul 20, 2024 Time of Visit: 11:46 Supervising Physician: Jaylen Noyola MD Primary Care Physician: Self, Referral Outpatient Specialists: Inpatient Consults: DR Song NEVES PROBLEM LIST: DKA with wide anion gap metabolic acidosis POA, resolved Hyperglycemia on New onset diabetes mellitus, POA HGA1C 12.6 Leukocytosis, POA Electrolyte derangement (hyponatremia, hypokalemia, hypophosphatemia) Overweight BMI 28.1 INTERVAL HISTORY: Patient is awake alert and oriented x3. Denies any nausea vomiting headache chills or fever. He is hemodynamically stable blood pressure of 136/59 heart rate in the 90s respiratory rate of 20 saturating 98% on room air and afebrile with a T-max of 99 and a T low of 98.4. Urine output 2.8 L with a balance of positive + 1 L. WBCs have normalized today 9.2 H&H 30.3/37 and platelet count is 243 K. sodium 134 potassium 3.4 corrected per protocol CO2 21 with a BUN of one and creatinine of 0.7 GFR 126 anion gap has closed, now 11. glucose 198 mg/dL total calcium 8.2. Patient reports constipation we will try today 30 g of lactulose x1 dose and continue with MiraLax daily. From pulmonary standpoint patient is stable at this time. We will sign off. Recommend endocrinology consult. Please reach to us should the need arise. On behalf of [facility] we are thankful for your team to let us participate in the care of this patient. We will be available if assistance in pulmonary critical care needed. REVIEW OF SYSTEMS: Const: Yes for 15 lb weight loss, fatigue and no fever Eyes: Yes for reason vision column ENT: [No congestion, ear pain, or sore throat] C/V: [no chest pain, palpitations or edema] Resp: [No cough, congestion, wheezing , or Shortness of breath] GI: [No abdominal pain, nausea, vomiting, constipation, or diarrhea] : [No incontinence of or dyuria] M/S: No joint pain or swelling but does report increased GBW Skin: [No rash] Neuro: [no headache, focal numbness, or weakness, dizziness or seizures] Psych: [no depression or anxiety] Heme: [no abnormal bruising or bleeding] Lymph: [no swollen glands] PHYSICAL EXAM: GENERAL: alert, weak, awake oriented x 3 HEENT: EOMI, Sclera non icteric, moist mucosa NECK: Supple, no JVD, trachea midline LUNGS: Clear breath sounds bilaterally. No wheezes HEART: Regular rate and rhythm. Normal S1 and S2, without murmurs ABD: Abdomen soft, nontender. Bowel sounds present EXT: No clubbing cyanosis or edema NEURO: Alert and oriented to person, follows commands Vital Signs (last 8hr) Date Time Temp Pulse Resp B/P (MAP) Pulse Ox O2 Delivery O2 Flow Rate FiO2 07/20/24 09:00 90 22 136/59 98 Room Air 07/20/24 08:36 99.0 07/20/24 08:00 99 Room Air* 0 21 07/20/24 08:00 89 29 115/93 98 Room Air 07/20/24 07:00 89 18 102/61 97 Room Air 07/20/24 06:47 89 18 102/61 97 Room Air 07/20/24 05:47 90 17 108/58 97 Room Air 07/20/24 04:47 98.4 91 18 103/55 98 Room Air LABS: Hematology Labs: Test 07/20/24 04:03 07/19/24 05:24 Range/Units White Blood Count 9.2 4.8-10.8 K/uL Red Blood Count 4.46 L 4.50-6.20 MIL/uL Hemoglobin 13.3 L 14.0-18.0 g/dL Hematocrit 37.0 L 42-54 % Mean Corpuscular Volume 83.0 79-99 fL Mean Corpuscular Hemoglobin 29.8 27.0-33.0 pg Mean Corpuscular Hemoglobin Concent 35.9 32.0-36.0 g/dL Red Cell Distribution Width 13.6 11.0-15.5 % Platelet Count 243 130-400 K/uL Mean Platelet Volume 10.6 H 7.5-10.5 fL Nucleated Red Blood Cells 0.0 0.0-0.19 % Immature Granulocyte % (Auto) 0.5 0-1 % Neutrophils (%) (Auto) 61.9 40.0-77.0 % Lymphocytes (%) (Auto) 29.0 21.0-51.0 % Monocytes (%) (Auto) 6.7 3.0-13.0 % Eosinophils (%) (Auto) 1.4 0.0-8.0 % Basophils (%) (Auto) 0.5 0.0-5.0 % Neutrophils # (Auto) 6.8 1.8-7.7 K/uL Lymphocytes # (Auto) 3.2 1.0-4.8 K/uL Monocytes # (Auto) 0.7 0.1-1.0 K/uL Eosinophils # (Auto) 0.16 0.00-0.70 K/uL Basophils # (Auto) 0.06 0.00-0.20 K/uL Absolute Immature Granulocyte (auto 0.06 0-1 K/uL Chemistry Labs: Test 07/20/24 11:20 07/20/24 11:00 07/20/24 04:03 07/19/24 05:24 Range/Units Whole Blood Glucose 186 H 70-110 MG/DL Sodium Level 134 L 136-145 mmol/L Potassium Level 3.4 L 3.5-5.1 mmol/L Chloride Level 102 101-111 mmol/L Carbon Dioxide Level 21 21-32 mmol/L Blood Urea Nitrogen 1 L 7-18 mg/dL Creatinine 0.7 0.5-1.3 mg/dL Glomerular Filtration Rate Calc 126 >90 mL/min Random Glucose 198 H 70-105 mg/dL Total Calcium 8.2 L 8.5-10.1 mg/dL Magnesium Level 1.70 L 1.80-2.40 mg/dL Total Bilirubin 0.6 0.2-1.0 mg/dL Aspartate Amino Transf (AST/SGOT) 16 10-37 U/L Alanine Aminotransferase (ALT/SGPT) 33 12-78 U/L Alkaline Phosphatase 83 50-136 U/L Total Protein 5.7 L 6.0-8.3 g/dL Albumin 2.7 L 3.5-5.0 g/dL Hemoglobin A1c 12.6 H 4.0-6.0 % Estimated Average Glucose (eAG) 315 H 70-126 mg/dL Thyroid Stimulating Hormone (TSH) 3.04 0.36-3.74 uIU/mL Test 07/18/24 23:50 07/18/24 19:38 Range/Units Whole Blood Ketones Quantitative 5.8 H 0.0-0.6 mmol/L Phosphorus Level 2.2 L 2.5-4.9 mg/dL Bedside Glucose Comment Protocol Initiated Bedside Glucose #2 Comment Stat Lab Glu Request Bedside Glucose #3 Comment Notified Nurse DIAGNOSTICS / RADIOLOGY RESULTS: [ ] IMAGING REPORT Signed PATIENT: CARLIN LUCAS MR#: [id number] : 1990 SEX: M AGE: 34 LOCATION: 2BH ORDER 1240 STATUS: ADM IN REPORT#: [id number] SERVICE 1239 REASON: constipation ORDERING PHYSICIAN: HEATH GUERRERO PROCEDURE: ABD 1VW - ABD 1VW ABD 1VW REASON: constipation FINDINGS: Single image of the abdomen was obtained. Bowel gas pattern is normal. Bones and soft tissues appear unremarkable. There are no abnormal calcifications. There is no evidence of foreign body. There are right upper quadrant surgical clips from previous cholecystectomy. IMPRESSION: 1. No acute finding. DICTATED BY: GUEVARA PIERSON MD DATE: 07/19/241411 ELECTRONICALLY SIGNED BY: GUEVARA PIERSON MD DATE: 07/19/241414 PLAN Patient may downgrade from ICU. Monitor for rebound DKA Advance diet to bland. Continue LR at 75 mL/hour for one more day. Consult Endocrinology. Court Collections Officer for type 2 diabetes mellitus diet recommendations for patient. NEURO: Minimize central acting medications as possible. Fall Precautions. Well lighted room through the day and minimize interruptions through the night to prevent acute delirium. PULMONARY: Supplemental 02 as needed Titrate Fio2 to keep Spo2 > or = 90% DuoNebs and CPT as needed IS hourly while awake for pulmonary hygiene Out of bed to chair as tolerated CARDIOVASCULAR: Follow hemodynamics. Titrate vasopressor to keep MAP >65 or systolic blood pressure >95mmHg Drips: Insulin gtt per protocol LINES: PIV GI & NUTRITION: Continue nutritional support Aspirations precautions Prokinetic agents and laxatives as needed KIDNEYS & ELECTROLYTES: Strict monitoring of intake and output Daily weights Avoid nephrotoxic agents Monitor electrolytes and replace as needed Goal urine output of 30mL/hr or 0.5mL/kg/hr Urine output: [ ] Fluid Balance: [ ] ENDOCRINE: Maintain blood glucose between 100-180 at all times. Insulin sliding scale for blood glucose management INFECTIOUS DISEASE: Trend temperature. [place]-culture if febrile. Micro: [ ] Antibiotics: [ ] HEMATOLOGY & COAGULATION: Monitor H&H. Keep Hgb > 7 Transfuse 1 unit of PRBC for Hgb < 7 Transfuse 1 pack of platelets of platelets < 20, 000 Watch for any signs and symptoms of bleeding SKIN: Pressure ulcer prevention per facility protocol Rehab: PT/OT Prophylaxis: GI: Protonix DVT: Lovenox Code Status: Full Resuscitation Disposition: ICU Other: Total patient care time exceeds 45 minutes excluding all procedures. Case was discussed and seen with my supervising physician. The above plan was formulated and agreed upon. HEATH GUERRERO [facility] Jul 20, 2024 11:46
--- NOTE | 2024-07-20 15:33 | PN ---
[facility] PROGRESS NOTE Date of Service: Jul 20, 2024 Time of Service: 15:28 SUBJECTIVE: 07/20 patient seen at bedside, no acute events overnight. Last night anion gap close to nine and patient was transitioned to subcutaneous however this morning gap open to 13. We will reorder labs at 9:00 a.m. and if gap is still open we will need to restart IV insulin. Discussed extensively lifestyle changes with patient, he indicated understanding. This is a new diabetes diagnosis for this patient. REVIEW OF SYSTEMS 12 point review of systems negative unless noted in HPI PHYSICAL EXAM GENERAL APPEARANCE: The patient is awake, alert, and oriented, in no acute cardiopulmonary distress. NEUROLOGICAL: Cranial nerves II-XII grossly intact. Motor is 5/5 in bilateral upper and lower extremities proximal to distal. No sensory deficits. HEENT: Face is symmetric. Pupils are equal and reactive. Extraocular movements are intact. NECK: Supple. No JVD. No thyromegaly. No submental, submandibular, pre- /postauricular, occipital or supraclavicular lymphadenopathy. CHEST: Normal chest expansion. No Telemetry. LUNGS: Absence of any rales, rhonchi or any wheezing. CARDIOVASCULAR: Regular. S1 and S2 normal. No appreciable rubs, murmurs or gallops. ABDOMEN: Soft, nontender, and nondistended. There is no rebound, voluntary guarding, or rigidity. : Deferred. No Fajardo. EXTREMITIES: Non-edematous and not cyanotic. No clubbing. Good capillary refill. SKIN: No skin breakdown. Vital Signs (last 8hr) Date Time Temp Pulse Resp B/P (MAP) Pulse Ox O2 Delivery O2 Flow Rate FiO2 07/20/24 12:00 98.1 99 22 127/76 99 Room Air 07/20/24 11:00 76 32 123/72 97 Room Air 07/20/24 10:00 95 24 119/78 99 Room Air 07/20/24 09:00 90 22 136/59 98 Room Air 07/20/24 08:36 99.0 07/20/24 08:00 99 Room Air* 0 21 07/20/24 08:00 89 29 115/93 98 Room Air LABS: Laboratory: Test 07/20/24 11:20 07/20/24 11:00 07/20/24 04:05 07/20/24 04:03 Range/Units Whole Blood Glucose 186 H 70-110 MG/DL Sodium Level 134 L 136-145 mmol/L Potassium Level 3.4 L 3.5-5.1 mmol/L Chloride Level 102 101-111 mmol/L Carbon Dioxide Level 21 21-32 mmol/L Blood Urea Nitrogen 1 L 7-18 mg/dL Creatinine 0.7 0.5-1.3 mg/dL Glomerular Filtration Rate Calc 126 >90 mL/min Random Glucose 198 H 70-105 mg/dL Total Calcium 8.2 L 8.5-10.1 mg/dL Blood Gas Specimen Type Venous Arterial Blood Oxygen Saturation 60.5 L 94.0-98.0 % Venous Blood pH 7.293 L 7.320-7.430 Venous Blood pCO2 at Patient Temp 33 L 38-54 Venous Blood pO2 at Patient Temp 34.5 23.0-48.0 mmHg Venous Blood HCO3 15.8 L 22.0-29.0 Venous Blood Base Excess -9.6 L -2.0-3.0 Blood Gas Temperature 37.0 35.5-37.0 CELSIUS Blood Gas Vent Mode RA,21 ROOM AIR FiO2 21.0 % Blood Gas Specimen Comment SHONDA CHENG White Blood Count 9.2 4.8-10.8 K/uL Red Blood Count 4.46 L 4.50-6.20 MIL/uL Hemoglobin 13.3 L 14.0-18.0 g/dL Hematocrit 37.0 L 42-54 % Mean Corpuscular Volume 83.0 79-99 fL Mean Corpuscular Hemoglobin 29.8 27.0-33.0 pg Mean Corpuscular Hemoglobin Concent 35.9 32.0-36.0 g/dL Red Cell Distribution Width 13.6 11.0-15.5 % Platelet Count 243 130-400 K/uL Mean Platelet Volume 10.6 H 7.5-10.5 fL Nucleated Red Blood Cells 0.0 0.0-0.19 % Magnesium Level 1.70 L 1.80-2.40 mg/dL Total Bilirubin 0.6 0.2-1.0 mg/dL Aspartate Amino Transf (AST/SGOT) 16 10-37 U/L Alanine Aminotransferase (ALT/SGPT) 33 12-78 U/L Alkaline Phosphatase 83 50-136 U/L Total Protein 5.7 L 6.0-8.3 g/dL Albumin 2.7 L 3.5-5.0 g/dL Test 07/19/24 05:24 07/18/24 23:50 07/18/24 23:13 07/18/24 19:42 Range/Units Immature Granulocyte % (Auto) 0.5 0-1 % Neutrophils (%) (Auto) 61.9 40.0-77.0 % Lymphocytes (%) (Auto) 29.0 21.0-51.0 % Monocytes (%) (Auto) 6.7 3.0-13.0 % Eosinophils (%) (Auto) 1.4 0.0-8.0 % Basophils (%) (Auto) 0.5 0.0-5.0 % Neutrophils # (Auto) 6.8 1.8-7.7 K/uL Lymphocytes # (Auto) 3.2 1.0-4.8 K/uL Monocytes # (Auto) 0.7 0.1-1.0 K/uL Eosinophils # (Auto) 0.16 0.00-0.70 K/uL Basophils # (Auto) 0.06 0.00-0.20 K/uL Absolute Immature Granulocyte (auto 0.06 0-1 K/uL Hemoglobin A1c 12.6 H 4.0-6.0 % Estimated Average Glucose (eAG) 315 H 70-126 mg/dL Thyroid Stimulating Hormone (TSH) 3.04 0.36-3.74 uIU/mL Whole Blood Ketones Quantitative 5.8 H 0.0-0.6 mmol/L Phosphorus Level 2.2 L 2.5-4.9 mg/dL Arterial Blood pH 7.237 *L 7.350-7.450 Arterial Blood Partial Pressure CO2 20 *L 35-48 mmHg Arterial Blood Partial Pressure O2 110.7 H 83.0-108.0 mmHg Arterial Blood HCO3 8.5 L 21.0-28.0 mmol/L Arterial Blood Base Excess -16.6 L -2.0-3.0 mmol/L Urine Color COLORLESS YELLOW Urine Appearance CLEAR CLEAR Urine pH 5.5 5.0-8.0 Urine Specific [place] 1.033 H 1.001-1.031 Urine Protein 20 H NEGATIVE mg/dL Urine Glucose (UA) >=1000 H NEGATIVE mg/dL Urine Ketones 150 H NEGATIVE mg/dL Urine Occult Blood NEGATIVE NEGATIVE Urine Nitrate NEGATIVE NEGATIVE Urine Bilirubin NEGATIVE NEGATIVE mg/dL Urine Urobilinogen 0.2 0.2-1.0 mg/dL Urine Leukocyte Esterase NEGATIVE NEGATIVE Wanda/uL Urine RBC 0-1 0-1 /HPF Urine WBC 0-1 0-1 /HPF Urine Squamous Epithelial Cells RARE 0-2 /HPF Urine Bacteria None None Seen /HPF Urine Other Casts 1 None Seen /LPF Test 07/18/24 19:38 Range/Units Bedside Glucose Comment Protocol Initiated Bedside Glucose #2 Comment Stat Lab Glu Request Bedside Glucose #3 Comment Notified Nurse Current Medications Medications (Trade) Dose Ordered Sig/Mitchell Route PRN Reason Start Time Stop Time Status Last Admin Dose Admin Acetaminophen (TYLenol 325MG TAB) 650 mg Q4H PRN PO MILD PAIN (1-3) 07/19/24 00:30 08/18/24 00:29 Acetaminophen (TYLenol 325MG TAB) 650 mg Q6H PRN PO TEMPERATURE GREATER THAN 101.5 07/19/24 00:30 08/18/24 00:29 Dextrose/Sodium Chloride 1,000 ml @ 0 mls/hr AD IV 07/18/24 23:00 07/19/24 00:13 DC Dextrose/Sodium Chloride 1,000 ml @ 0 mls/hr AD IV 07/19/24 00:30 07/20/24 04:14 DC Famotidine (Pepcid 20mg Vial) 20 mg BID IV 07/19/24 09:00 08/18/24 08:59 07/20/24 08:10 20 MG Insulin Glargine (LANtus 100 UNITS/ML 10 ML VIAL) 10 units BID@0730,2100 SQ 07/19/24 13:00 07/20/24 04:14 DC 07/19/24 21:00 10 UNITS Insulin Human Regular (humuLIN R 100 UNIT/ML 3ML) INSULIN SLIDING SCAL... ACHS SQ 07/20/24 07:30 08/19/24 07:29 07/20/24 12:18 6 UNIT Insulin Human Regular 100 unit/ Sodium Chloride 101 ml @ 0 mls/hr PROTOCOL IV 07/18/24 23:00 07/19/24 00:13 DC Insulin Human Regular 100 unit/ Sodium Chloride 101 ml @ 0 mls/hr PROTOCOL IV 07/19/24 00:30 07/20/24 04:14 DC Lactated Ringer's 1,000 ml @ 75 mls/hr [id number] PRN IV CONT INFUSION 07/20/24 04:30 08/19/24 04:29 Magnesium Sulfate 50 ml @ 0 mls/hr PROTOCOL IV 07/18/24 23:00 07/19/24 00:13 DC Magnesium Sulfate 50 ml @ 0 mls/hr PROTOCOL IV 07/19/24 00:30 07/19/24 08:26 DC Magnesium Sulfate 50 ml @ 0 mls/hr PROTOCOL IV 07/19/24 08:30 08/18/24 08:29 07/20/24 07:08 25 MLS/HR Ondansetron HCl (zoFRAN 4MG INJ) 4 mg Q6H PRN IV NAUSEA/VOMITING 07/19/24 00:30 08/18/24 00:29 Polyethylene Glycol (MIRalax 3350 17 GM POWD.PACK) 17 gm DAILY PO 07/20/24 09:00 08/19/24 08:59 07/20/24 08:10 17 GM Potassium Chloride 20 meq/ Sodium Chloride 1,010 ml @ 0 mls/hr PROTOCOL IV 07/18/24 23:00 07/19/24 00:13 DC Potassium Chloride 20 meq/ Sodium Chloride 1,010 ml @ 0 mls/hr PROTOCOL IV 07/19/24 00:30 07/20/24 04:14 DC Potassium Chloride/Dextrose/ Sod Cl 1,000 ml @ 0 mls/hr AD IV 07/18/24 23:00 07/19/24 00:13 DC Potassium Chloride/Dextrose/ Sod Cl 1,000 ml @ 0 mls/hr AD IV 07/19/24 00:30 07/20/24 04:14 DC 07/19/24 12:20 125 MLS/HR Potassium Chloride/Sodium Chloride 1,000 ml @ 150 mls/hr Q6H40M IV 07/19/24 02:00 08/18/24 01:59 07/19/24 02:10 150 MLS/HR Potassium Chloride 100 ml @ 0 mls/hr PROTOCOL PRN IV DKA POTASSIUM REPLACEMENT 07/18/24 23:00 07/20/24 14:54 DC 07/19/24 09:19 100 MLS/HR Potassium Chloride (K-Dur/Klor-Con 20meq) 20 meq AD PRN PO POTASSIUM PROTOCOL 07/19/24 08:30 08/18/24 08:29 07/19/24 22:37 20 MEQ Potassium Chloride (KCl 10% Elixir 20meq/15ml) 20 meq AD PRN PO POTASSIUM PROTOCOL 07/19/24 08:30 08/18/24 08:29 Sodium Chloride 1,000 ml @ 0 mls/hr Q0M IV 07/18/24 20:00 08/17/24 19:59 07/18/24 22:00 999 MLS/HR Sodium Chloride 1,000 ml @ 200 mls/hr PROTOCOL IV 07/19/24 00:30 07/20/24 04:14 DC 07/19/24 01:54 250 MLS/HR DIAGNOSTICS / RADIOLOGY: [ ] ASSESSMENT: DKA with wide anion gap metabolic acidosis POA New onset diabetes, last A1C 12.6 POA PLAN: Continue ICU Start diabetic diet Continue insulin drip, transition to subcutaneous once anion gap < 12 Continue Famotidine 20 mg IV bid for GI prophylaxis Endocrinology consulted, appreciate recommendations Disposition: Pending resolution of DKA and endocrinology recommendations Greater than 35 minutes ICU time spent in care of this patient SAV CAMEJO MD Jul 20, 2024 15:33
[2024-07-20] MEDS: LACTULOSE 20 GM/30 ML UDCUP PO ONE (16:27)
--- NOTE | 2024-07-20 16:45 | NUR ---
REPORT REPORT GIVEN TO APOLONIA LEDBETTER LVN, PT WILL BE TRANSFERRED TO ROOM 416 VIA W/C. TELEPACK PLACED ON PT.
--- NOTE | 2024-07-20 17:02 | NUR ---
PATIENT ARRIVED TO UNIT. NO S/S OF DISTRESS NOTED. PATIENT AMBULATING WITH NO DEFICIT. TELE IN PLACE.
--- NOTE | 2024-07-20 19:36 | CONS ---
CONSULT NOTE: endocrinology consult Date of Service: Jul 20, 2024 chief complaint: weakness, dka reason for consult: dka and newly diagnosed uncontrolled dm-2 HISTORY OF PRESENT ILLNESS: 34 year old male with no pertinent medical history who presents to the ED for complaints of generalized weakness .Patient is newly diagnosed DM-2 and treated with insulin drip, ivf for DKA. he is off insulin drip now and non ivf. hba1c 12.6% he denies any diabetes. he does not watch his diet and consume high carbs food and beverages. Patient denies fever,chills,nausea,vomiting ,abdominal pain,chest pain,palpitation and shortness of breath. Latest vital signs temperature 98.6, heart rate 118, blood pressure 139/88 saturation 98% on room air. Labs: WBC 11.8, hemoglobin 17.6, hematocrit 49.9 platelet count 381. PH 7.23, CO2 20, PO2 110 bicarb 8.5 O2 saturation 97% base excess -16. Sodium 136, potassium 3.4, CO2 40 glucose 365 the rest of the chemistries unremarkable. Urinalysis remarkable for proteinuria ,glucosuria and ketonuria. Chest x-ray result is still pending at this time. REVIEW OF SYSTEMS CONSTITUTIONAL: Complained of weight loss 15 lb Denies fevers, chills, or night sweats. NEUROLOGICAL: Complain of generalized body weakness Denies headache, amaurosis fugax, sensory deficit, vertigo/spinning sensation, gait abnormalities, or tremors. ENT: Complained of blurry vision No hearing loss, otalgia, otorrhea, rhinitis, rhinorrhea, hoarseness, or sore throat. CARDIOVASCULAR: Denies any exertional angina, dyspnea on exertion, orthopnea, paroxysmal nocturnal dyspnea, palpitations, life-threatening arrhythmias, claudication. PULMONARY: Denies any shortness of breath, cough, phlegm/sputum, hemoptysis, pleuritic chest pain. SLEEP: Denies morning headaches, daytime somnolence or napping. Denies difficulty falling asleep, staying asleep, waking from sleep. Denies knowledge of snoring. GASTROINTESTINAL: Denies any type of dysphagia to either liquids or solids. Denies nausea, vomiting, pyrosis, early satiety, abdominal pain, diarrhea, changes in stool consistency or caliber. Denies coffee-ground emesis, he matemesis, hematochezia, or melanotic stools. GENITOURINARY: Denies frequency, urgency, nocturia, hematuria or incontinence (Storage/Irritative symptoms.) Low urinary stream, straining to void, urinary intermittency or hesitancy, splitting of the voiding stream, terminal dribbling. ENDOCRINOLOGIC: Denies polyuria, polydipsia, polyphagia or heat/cold intolerances. HEMATOLOGIC: Denies thrombophilia/previous clots, or coagulopathy/bleeding disorders. ONCOLOGIC: Denies personal history of malignancy. DERMATOLOGIC: Denies rashes or pruritus. PSYCHIATRIC: Denies any suicidal or homicidal ideation. Denies hallucinations. PAST MEDICAL HISTORY: [ No pertinent medical history ] PAST SURGICAL HISTORY: [ Cholecystectomy ] PAST SOCIAL HISTORY: [ Patient lives alone. Patient denies alcohol tobacco recreational drug use ] FAMILY HISTORY: [Noncontributory ] Coded Allergies: bee venom (honey bee) (Unverified Allergy, Intermediate, SWELLING, 03/13/14) hE ALSO GETS HIVES No Known Drug Allergies (Verified Allergy, Unknown, 03/13/14) PHYSICAL EXAM GENERAL APPEARANCE: The patient is awake, alert, and oriented, in no acute cardiopulmonary distress. NEUROLOGICAL: Cranial nerves II-XII grossly intact. Motor is 5/5 in bilateral upper and lower extremities proximal to distal. No sensory deficits. HEENT: Face is symmetric. Pupils are equal and reactive. Extraocular movements are intact. NECK: Supple. No JVD. No thyromegaly. No submental, submandibular, pre- /postauricular, occipital or supraclavicular lymphadenopathy. CHEST: Normal chest expansion. No Telemetry. LUNGS: Absence of any rales, rhonchi or any wheezing. CARDIOVASCULAR: Regular. S1 and S2 normal. No appreciable rubs, murmurs or g allops. EXTREMITIES: Non-edematous and not cyanotic. No clubbing. Good capillary refi ll. SKIN: No skin breakdown. ASSESSMENT: DKA with anion gap metabolic acidosis POA dka resolved. off insulin drip. tolerates po intake. New onset diabetes POA likely type 2 DM but rule out type 1 DM. father has dm-2 PLAN: start lantus 20 units daily start regular insulin 4 units qac before meals decrease high dose ssi to medium dose ssi. BLANCA-65 abs ordered. advance to carbs consistent diet. monitor glucose qx6 hourly. patient will need lantus 20 units daily and metformin 500 mg bid at discharge. prescription placed in chart. thanks for allowing me to participate in patient care and will continue to follow up. Vital Signs 07/20/24 07/20/24 08:00 17:05 Temp 98.1 Pulse 99 Resp 18 B/P (MAP) 128/83 Pulse Ox 99 O2 Delivery Room Air O2 Flow Rate 0 FiO2 21 Hematology Labs: Test 07/20/24 04:03 07/19/24 05:24 Range/Units White Blood Count 9.2 4.8-10.8 K/uL Red Blood Count 4.46 L 4.50-6.20 MIL/uL Hemoglobin 13.3 L 14.0-18.0 g/dL Hematocrit 37.0 L 42-54 % Mean Corpuscular Volume 83.0 79-99 fL Mean Corpuscular Hemoglobin 29.8 27.0-33.0 pg Mean Corpuscular Hemoglobin Concent 35.9 32.0-36.0 g/dL Red Cell Distribution Width 13.6 11.0-15.5 % Platelet Count 243 130-400 K/uL Mean Platelet Volume 10.6 H 7.5-10.5 fL Nucleated Red Blood Cells 0.0 0.0-0.19 % Immature Granulocyte % (Auto) 0.5 0-1 % Neutrophils (%) (Auto) 61.9 40.0-77.0 % Lymphocytes (%) (Auto) 29.0 21.0-51.0 % Monocytes (%) (Auto) 6.7 3.0-13.0 % Eosinophils (%) (Auto) 1.4 0.0-8.0 % Basophils (%) (Auto) 0.5 0.0-5.0 % Neutrophils # (Auto) 6.8 1.8-7.7 K/uL Lymphocytes # (Auto) 3.2 1.0-4.8 K/uL Monocytes # (Auto) 0.7 0.1-1.0 K/uL Eosinophils # (Auto) 0.16 0.00-0.70 K/uL Basophils # (Auto) 0.06 0.00-0.20 K/uL Absolute Immature Granulocyte (auto 0.06 0-1 K/uL Chemistry Labs: Test 07/20/24 16:29 07/20/24 11:00 07/20/24 04:03 07/19/24 05:24 Range/Units Whole Blood Glucose 144 H 70-110 MG/DL Sodium Level 134 L 136-145 mmol/L Potassium Level 3.4 L 3.5-5.1 mmol/L Chloride Level 102 101-111 mmol/L Carbon Dioxide Level 21 21-32 mmol/L Blood Urea Nitrogen 1 L 7-18 mg/dL Creatinine 0.7 0.5-1.3 mg/dL Glomerular Filtration Rate Calc 126 >90 mL/min Random Glucose 198 H 70-105 mg/dL Total Calcium 8.2 L 8.5-10.1 mg/dL Magnesium Level 1.70 L 1.80-2.40 mg/dL Total Bilirubin 0.6 0.2-1.0 mg/dL Aspartate Amino Transf (AST/SGOT) 16 10-37 U/L Alanine Aminotransferase (ALT/SGPT) 33 12-78 U/L Alkaline Phosphatase 83 50-136 U/L Total Protein 5.7 L 6.0-8.3 g/dL Albumin 2.7 L 3.5-5.0 g/dL Hemoglobin A1c 12.6 H 4.0-6.0 % Estimated Average Glucose (eAG) 315 H 70-126 mg/dL Thyroid Stimulating Hormone (TSH) 3.04 0.36-3.74 uIU/mL Test 07/18/24 23:50 07/18/24 19:38 Range/Units Whole Blood Ketones Quantitative 5.8 H 0.0-0.6 mmol/L Phosphorus Level 2.2 L 2.5-4.9 mg/dL Bedside Glucose Comment Protocol Initiated Bedside Glucose #2 Comment Stat Lab Glu Request Bedside Glucose #3 Comment Notified Nurse Current Medications Medications (Trade) Dose Ordered Sig/Mitchell Route Start Time Stop Time Status Last Admin Dose Admin Dextrose/Sodium Chloride 1,000 ml @ 0 mls/hr AD IV 07/18/24 23:00 07/19/24 00:13 DC Dextrose/Sodium Chloride 1,000 ml @ 0 mls/hr AD IV 07/19/24 00:30 07/20/24 04:14 DC Famotidine (Pepcid 20mg Vial) 20 mg BID IV 07/19/24 09:00 08/18/24 08:59 07/20/24 08:10 20 MG Insulin Glargine (LANtus 100 UNITS/ML 10 ML VIAL) 10 units BID@0730,2100 SQ 07/19/24 13:00 07/20/24 04:14 DC 07/19/24 21:00 10 UNITS Insulin Glargine (LANtus 100 UNITS/ML 10 ML VIAL) 20 units HS SQ 07/20/24 21:00 08/19/24 20:59 Insulin Human Regular (humuLIN R 100 UNIT/ML 3ML) INSULIN SLIDING SCAL... ACHS SQ 07/20/24 07:30 08/19/24 07:29 07/20/24 12:18 6 UNIT Insulin Human Regular 100 unit/ Sodium Chloride 101 ml @ 0 mls/hr PROTOCOL IV 07/18/24 23:00 07/19/24 00:13 DC Insulin Human Regular 100 unit/ Sodium Chloride 101 ml @ 0 mls/hr PROTOCOL IV 07/19/24 00:30 07/20/24 04:14 DC Magnesium Sulfate 50 ml @ 0 mls/hr PROTOCOL IV 07/18/24 23:00 07/19/24 00:13 DC Magnesium Sulfate 50 ml @ 0 mls/hr PROTOCOL IV 07/19/24 00:30 07/19/24 08:26 DC Magnesium Sulfate 50 ml @ 0 mls/hr PROTOCOL IV 07/19/24 08:30 08/18/24 08:29 07/20/24 07:08 25 MLS/HR Metformin HCl (glucoPHAGE) 500 mg BID PO 07/20/24 21:00 08/19/24 20:59 Polyethylene Glycol (MIRalax 3350 17 GM POWD.PACK) 17 gm DAILY PO 07/20/24 09:00 08/19/24 08:59 07/20/24 08:10 17 GM Potassium Chloride 20 meq/ Sodium Chloride 1,010 ml @ 0 mls/hr PROTOCOL IV 07/18/24 23:00 07/19/24 00:13 DC Potassium Chloride 20 meq/ Sodium Chloride 1,010 ml @ 0 mls/hr PROTOCOL IV 07/19/24 00:30 07/20/24 04:14 DC Potassium Chloride/Dextrose/ Sod Cl 1,000 ml @ 0 mls/hr AD IV 07/18/24 23:00 07/19/24 00:13 DC Potassium Chloride/Dextrose/ Sod Cl 1,000 ml @ 0 mls/hr AD IV 07/19/24 00:30 07/20/24 04:14 DC 07/19/24 12:20 125 MLS/HR Potassium Chloride/Sodium Chloride 1,000 ml @ 150 mls/hr Q6H40M IV 07/19/24 02:00 07/20/24 16:32 DC 07/19/24 02:10 150 MLS/HR Sodium Chloride 1,000 ml @ 0 mls/hr Q0M IV 07/18/24 20:00 08/17/24 19:59 07/18/24 22:00 999 MLS/HR Sodium Chloride 1,000 ml @ 200 mls/hr PROTOCOL IV 07/19/24 00:30 07/20/24 04:14 DC 07/19/24 01:54 250 MLS/HR VINCENT BADILLO MD Jul 20, 2024 19:36
[2024-07-20] MEDS: metFORmin HCL 500 MG TABLET PO SCH (20:39)
[2024-07-20] MEDS: INSULIN GLARgine 100 UNITS/ML 10 ML VIAL SQ SCH (20:40)
[2024-07-21] VITALS: BP 124/80; PULSE 86; RESP 18; TEMP 98.2
[2024-07-21 04:00] VITALS: BP 111/61; PULSE 88; RESP 18; TEMP 98.3
[2024-07-21 05:21] LABS: BASOPHILS # (AUTO) 0.04 K/uL (0.00-0.20); BASOPHILS % (AUTO) 0.5 % (0.0-5.0); EOSINOPHILS # (AUTO) 0.18 K/uL (0.00-0.70); EOSINOPHILS % (AUTO) 2.2 % (0.0-8.0); HEMATOCRIT 39.6 % (42-54); IMMATURE GRANULOCYTE ABSOLUTE 0.03 K/uL (0-1); LYMPHOCYTES # (AUTO) 2.6 K/uL (1.0-4.8); LYMPHOCYTES % (AUTO) 32.4 % (21.0-51.0); MEAN CORPUSCULAR HEMOGLOBIN 29.5 pg (27.0-33.0); MEAN CORPUSCULAR HGB CONC 35.4 g/dL (32.0-36.0); MEAN CORPUSCULAR VOLUME 83.5 fL (79-99); MONOCYTES # (AUTO) 0.8 K/uL (0.1-1.0); MONOCYTES % (AUTO) 9.5 % (3.0-13.0); NEUTROPHILS # (AUTO) 4.4 K/uL (1.8-7.7); PLATELET COUNT (AUTO) 244 K/uL (130-400); RED BLOOD CELL COUNT(AUTO) 4.74 MIL/uL (4.50-6.20); RED CELL DISTRIBUTION WIDTH 13.3 % (11.0-15.5)
[2024-07-21 05:39] LABS: CREATININE 0.8 mg/dL (0.5-1.3); MAGNESIUM 1.7 mg/dL (1.80-2.40); PHOSPHORUS 3.5 mg/dL (2.5-4.9)
[2024-07-21] MEDS: INSULIN humuLIN R 100 UNIT/ML 3ML SQ SCH ×2 (07:30→11:21)
[2024-07-21 08:00] VITALS: BP 120/67; PULSE 65; RESP 18; TEMP 98.2; O2SAT 97
[2024-07-21 12:00] VITALS: BP 115/65; PULSE 88; RESP 18; TEMP 98.1
--- NOTE | 2024-07-21 14:21 | NUR ---
PATIENT D/C HOME. NO S/S OF DISTRESS NOTED. POTASSIUM HAS BEEN COVERED. REVIEWED RX WITH PATIENT . VERBALIZED UNDERSTANDING
--- NOTE | 2024-07-21 18:22 | DS ---
Discharge Summary Hospital Course Summary: 34 year old male with no pertinent medical history who presents to the ED for complaints of generalized weakness. Patient stated he had dry cough for 2 days. Patient reported he has lost 15 lbs in a month and started feeling weak with blurry vision for the previous 2 weeks and his vision had been normal now but he is feeling more weaker. Patient was noted to be in DKA, he was admitted to the ICU and started on insulin drip. His anion gap closed and he was transitioned to subcutaneous insulin and downgraded from the ICU. Endocrinology was consulted and made discharge recommendations. By hospital day 3 he was stable and discharged home with new diabetes medications. . Territory Supervisor(s): Endocrinology Critical Care . Procedure(s): ABD 1VW REASON: constipation FINDINGS: Single image of the abdomen was obtained. Bowel gas pattern is normal. Bones and soft tissues appear unremarkable. There are no abnormal calcifications. There is no evidence of foreign body. There are right upper quadrant surgical clips from previous cholecystectomy. IMPRESSION: 1. No acute finding. CHEST 1VW HISTORY: Chest pain COMPARISON: None FINDINGS: A frontal projection of the chest was obtained. No acute pulmonary infiltrates is seen. The heart is normal in size. Prominent interstitial markings are seen. Degenerative changes are seen. No evidence of aortic calcification is seen. IMPRESSION: 1. No acute pulmonary infiltrate is seen. Assessment/Plan: DKA with wide anion gap metabolic acidosis POA New onset diabetes, last A1C 12.6 POA Discharge Instructions: Follow up with PCP in 3-7 days Follow up with investigative agent, Dr. Joy, in 1-2 weeks Home Medications: Discontinued Reported Medications [none] No Conflict Check 03/13/14 Medication Profile: No Active Prescriptions or Reported Meds Time spent arranging discharge: 31-60 minutes SAV CAMEJO MD Jul 21, 2024 18:22
--- NOTE | 2024-07-21 19:56 | PN ---
endocrinology progress note Date of Service: Jul 21, 2024 subjeftive hyperglycemia is improving but mildly elevated. Labs: WBC 11.8, hemoglobin 17.6, hematocrit 49.9 platelet count 381. PH 7.23, CO2 20, PO2 110 bicarb 8.5 O2 saturation 97% base excess -16. Sodium 136, potassium 3.4, CO2 40 glucose 365 the rest of the chemistries unremarkable. Urinalysis remarkable for proteinuria ,glucosuria and ketonuria. Chest x-ray result is still pending at this time. REVIEW OF SYSTEMS CONSTITUTIONAL: Complained of weight loss 15 lb Denies fevers, chills, or night sweats. NEUROLOGICAL: Complain of generalized body weakness Denies headache, amaurosis fugax, sensory deficit, vertigo/spinning sensation, gait abnormalities, or tremors. ENT: Complained of blurry vision No hearing loss, otalgia, otorrhea, rhinitis, rhinorrhea, hoarseness, or sore throat. CARDIOVASCULAR: Denies any exertional angina, dyspnea on exertion, orthopnea, paroxysmal nocturnal dyspnea, palpitations, life-threatening arrhythmias, claudication. PULMONARY: Denies any shortness of breath, cough, phlegm/sputum, hemoptysis, pleuritic chest pain. SLEEP: Denies morning headaches, daytime somnolence or napping. Denies difficulty falling asleep, staying asleep, waking from sleep. Denies knowledge of snoring. GASTROINTESTINAL: Denies any type of dysphagia to either liquids or solids. Denies nausea, vomiting, pyrosis, early satiety, abdominal pain, diarrhea, changes in stool consistency or caliber. Denies coffee-ground emesis, hematemesis, hematochezia, or melanotic stools. GENITOURINARY: Denies frequency, urgency, nocturia, hematuria or incontinence (Storage/Irritative symptoms.) Low urinary stream, straining to void, urinary intermittency or hesitancy, splitting of the voiding stream, terminal dribbling. ENDOCRINOLOGIC: Denies polyuria, polydipsia, polyphagia or heat/cold intolerances. HEMATOLOGIC: Denies thrombophilia/previous clots, or coagulopathy/bleeding disorders. ONCOLOGIC: Denies personal history of malignancy. DERMATOLOGIC: Denies rashes or pruritus. PSYCHIATRIC: Denies any suicidal or homicidal ideation. Denies hallucinations. PAST MEDICAL HISTORY: [ No pertinent medical history ] PAST SURGICAL HISTORY: [ Cholecystectomy ] PAST SOCIAL HISTORY: [ Patient lives alone. Patient denies alcohol tobacco recreational drug use ] FAMILY HISTORY: [Noncontributory ] Coded Allergies: bee venom (honey bee) (Unverified Allergy, Intermediate, SWELLING, 03/13/14) hE ALSO GETS HIVES No Known Drug Allergies (Verified Allergy, Unknown, 03/13/14) ASSESSMENT: DKA with anion gap metabolic acidosis POA dka resolved. off insulin drip. tolerates po intake. New onset diabetes POA likely type 2 DM but rule out type 1 DM. father has dm-2 PLAN: continue lantus 20 units daily increase regular insulin to 6 units qac before meals continue medium dose ssi. follow on BLANCA-65 abs advance to carbs consistent diet. monitor glucose qx6 hourly. patient will need lantus 20 units daily and metformin 500 mg bid at discharge. prescription placed in chart. Vitals/Labs Vital Signs Date Time Temp Pulse Resp B/P (MAP) Pulse Ox O2 Delivery O2 Flow Rate FiO2 07/21/24 12:00 98.1 88 18 115/65 98 Room Air 07/21/24 08:00 0 21 Laboratory Tests 07/21/24 05:05 Medications Current Medications Sodium Chloride 1,000 ml @ 0 mls/hr Q0M IV Last administered on 07/18/24at 22:00; Start 07/18/24 at 20:00; Stop 07/21/24 at 15:26; Status DC Insulin Human Regular 10 unit ONCE ONCE SQ Last administered on 07/19/24at 00:10; Start 07/18/24 at 22:30; Stop 07/18/24 at 22:31; Status DC Potassium Chloride/Dextrose/ Sod Cl 1,000 ml @ 0 mls/hr AD IV; Start 07/18/24 at 23:00; Stop 07/19/24 at 00:13; Status DC Potassium Chloride 20 meq/ Sodium Chloride 1,010 ml @ 0 mls/hr PROTOCOL IV; Start 07/18/24 at 23:00; Stop 07/19/24 at 00:13; Status DC Potassium Chloride 100 ml @ 0 mls/hr PROTOCOL PRN IV Last administered on 07/19/24at 09:19; Start 07/18/24 at 23:00; Stop 07/20/24 at 14:54; Status DC Magnesium Sulfate 50 ml @ 0 mls/hr PROTOCOL IV; Start 07/18/24 at 23:00; Stop 07/19/24 at 00:13; Status DC Insulin Human Regular 100 unit/ Sodium Chloride 101 ml @ 0 mls/hr PROTOCOL IV; Start 07/18/24 at 23:00; Stop 07/19/24 at 00:13; Status DC Dextrose/Sodium Chloride 1,000 ml @ 0 mls/hr AD IV; Start 07/18/24 at 23:00; Stop 07/19/24 at 00:13; Status DC Acetaminophen 650 mg Q6H PRN PO; Start 07/19/24 at 00:30; Stop 07/21/24 at 15:26; Status DC Acetaminophen 650 mg Q4H PRN PO; Start 07/19/24 at 00:30; Stop 07/21/24 at 15:26; Status DC Ondansetron HCl 4 mg Q6H PRN IV; Start 07/19/24 at 00:30; Stop 07/21/24 at 15:26; Status DC Famotidine 20 mg BID IV Last administered on 07/21/24at 08:12; Start 07/19/24 at 09:00; Stop 07/21/24 at 15:26; Status DC Sodium Chloride 1,000 ml @ 200 mls/hr PROTOCOL IV Last administered on 07/19/24at 01:54; Start 07/19/24 at 00:30; Stop 07/20/24 at 04:14; Status DC Potassium Chloride/Dextrose/ Sod Cl 1,000 ml @ 0 mls/hr AD IV Last administered on 07/19/24at 12:20; Start 07/19/24 at 00:30; Stop 07/20/24 at 04:14; Status DC Potassium Chloride 20 meq/ Sodium Chloride 1,010 ml @ 0 mls/hr PROTOCOL IV; Start 07/19/24 at 00:30; Stop 07/20/24 at 04:14; Status DC Magnesium Sulfate 50 ml @ 0 mls/hr PROTOCOL IV; Start 07/19/24 at 00:30; Stop 07/19/24 at 08:26; Status DC Insulin Human Regular 100 unit/ Sodium Chloride 101 ml @ 0 mls/hr PROTOCOL IV; Start 07/19/24 at 00:30; Stop 07/20/24 at 04:14; Status DC Dextrose/Sodium Chloride 1,000 ml @ 0 mls/hr AD IV; Start 07/19/24 at 00:30; Stop 07/20/24 at 04:14; Status DC Potassium Chloride/Sodium Chloride 1,000 ml @ 150 mls/hr [id number] IV Last administered on 07/19/24at 02:10; Start 07/19/24 at 02:00; Stop 07/20/24 at 16:32; Status DC Potassium Chloride 20 meq AD PRN PO; Start 07/19/24 at 08:30; Stop 07/21/24 at 15:26; Status DC Potassium Chloride 20 meq AD PRN PO Last administered on 07/21/24at 13:28; Start 07/19/24 at 08:30; Stop 07/21/24 at 15:26; Status DC Potassium Chloride 20 meq STK-MED ONCE PO Last administered on 07/19/24at 08:07; Start 07/19/24 at 08:06; Stop 07/19/24 at 08:06; Status DC Magnesium Sulfate 50 ml @ 0 mls/hr PROTOCOL IV Last administered on 07/21/24at 06:00; Start 07/19/24 at 08:30; Stop 07/21/24 at 15:26; Status DC Bisacodyl 10 mg ONCE ONCE RC; Start 07/19/24 at 13:00; Stop 07/19/24 at 13:01; Status DC Polyethylene Glycol 17 gm DAILY PO Last administered on 07/21/24at 08:12; Start 07/20/24 at 09:00; Stop 07/21/24 at 15:26; Status DC Insulin Glargine 10 units BID@0730,2100 SQ Last administered on 07/19/24at 21:00; Start 07/19/24 at 13:00; Stop 07/20/24 at 04:14; Status DC Polyethylene Glycol 17 gm STK-MED ONCE .ROUTE Last administered on 07/19/24at 13:31; Start 07/19/24 at 13:27; Stop 07/19/24 at 13:27; Status DC Polyethylene Glycol 17 gm ONCE ONCE PO; Start 07/19/24 at 13:30; Stop 07/19/24 at 13:32; Status DC Lactated Ringer's 1,000 ml @ 75 mls/hr [id number] PRN IV; Start 07/20/24 at 04:30; Stop 07/21/24 at 15:26; Status DC Heparin Sodium (Porcine) 3,000 unit ONCE ONCE IV; Start 07/20/24 at 06:30; Stop 07/20/24 at 06:35; Status DC Insulin Human Regular INSULIN SLIDING SCAL... ACHS SQ Last administered on 07/20/24at 20:41; Start 07/20/24 at 07:30; Stop 07/21/24 at 07:14; Status DC Lactulose 30 gm ONCE ONCE PO; Start 07/20/24 at 15:30; Stop 07/20/24 at 15:31; Status DC Insulin Glargine 20 units HS SQ Last administered on 07/20/24at 20:40; Start 07/20/24 at 21:00; Stop 07/21/24 at 15:26; Status DC Metformin HCl 500 mg BID PO Last administered on 07/21/24at 08:11; Start 07/20/24 at 21:00; Stop 07/21/24 at 15:26; Status DC Insulin Human Regular 4 unit TIDAC SQ Last administered on 07/21/24at 11:21; Start 07/21/24 at 11:30; Stop 07/21/24 at 15:26; Status DC Insulin Human Regular INSULIN SLIDING SCAL... ACHS SQ Last administered on 07/21/24at 11:22; Start 07/21/24 at 07:30; Stop 07/21/24 at 15:26; Status DC VINCENT BADILLO MD Jul 21, 2024 19:56
== END 2024-07-21 14:45 | disposition home or self-care (01) | DRG 638 ==
LOC: EDH 18:52 → EDHIP 18:53 → 2BH 07-19 03:11 → 4CH 07-20 17:05
PROVIDERS: ADMIT Internal Medicine; ATTEND Internal Medicine
DX: E11.10 Type 2 diabetes mellitus with ketoacidosis without coma (principal); E87.1 Hypo-osmolality and hyponatremia; H53.8 Other visual disturbances; D72.829 Elevated white blood cell count, unspecified; E66.3 Overweight; E87.6 Hypokalemia; Z68.28 Body mass index [BMI] 28.0-28.9, adult; E83.39 Other disorders of phosphorus metabolism; R00.0 Tachycardia, unspecified; K59.00 Constipation, unspecified; Z83.3 Family history of diabetes mellitus
CPT/HCPCS: 36415; 36600; 71045; 74018; 80048; 80053; 81001; 82010; 82803; 82948; 83036; 83735; 84100; 84443; 85025; 85027; 86341; 96360; 99285; G0378; J1815; J3475; J3480; J3490; J7030